=== PATIENT | female | born 1935 | race Caucasian/White ===

== ENCOUNTER 2022-08-16 15:36 | Emergency (ER) | payer OTHER, SELFPAY ==
--- NOTE | ~2022-08-16 | CT_ITS ---
EXAMINATION: CT CHEST, ABDOMEN AND PELVIS WITHOUT CONTRAST CLINICAL INFORMATION: Lung metastasis. COMPARISON: No pertinent prior studies are available for comparison. TECHNIQUE: Multidetector volumetric imaging was performed from the thoracic inlet through the pubic symphysis without IV contrast. Sagittal and coronal reformatted images were obtained on the technologist's workstation. This CT examination was performed using dose optimization techniques as appropriate, variously including the following: *Automated exposure control. *Adjustment of mA and/or kV according to patient size (this includes techniques or standardized protocols for targeted exams where dose is matched to indication/reason for exam; i.e. extremities or head). *Use of iterative reconstruction technique. TOTAL DLP: 487 mGy-cm FINDINGS: CHEST: Lung: Fibrotic changes are present in the lungs with subpleural reticulation and some minimal honeycombing, right greater than left. Scattered small micronodules are seen but there is no convincing evidence of pulmonary metastatic disease. Some bronchial wall thickening is present with some traction bronchiectasis is present at the lung bases. Mediastinum: Status post median sternotomy. Heart size is normal. Extensive coronary calcifications are seen. Patient is status post CABG. Tracheobronchomegaly. No mediastinal or hilar lymphadenopathy is seen. Large hiatal hernia is present in the mediastinum. Dual-lead pacemaker is present. Pericardium/Pleura: No significant effusion. No pleural mass or thickening. Chest Wall/Axilla: Left chest wall pacemaker. No axillary lymphadenopathy. ABDOMEN/PELVIS: Peritoneal Space: No significant free air or free fluid identified. Liver, Gallbladder, Biliary Tree: The liver is normal in size, shape, and attenuation. No focal hepatic lesion or biliary ductal dilatation is present. Status post cholecystectomy. Pancreas: Unremarkable. Spleen: Unremarkable. Adrenal Glands: Unremarkable. Kidneys and Ureters: The right kidney appears normal. The left kidney is smaller with cortical scarring. Bladder: Distended but unremarkable. Gastrointestinal Tract: The small and large bowel are unremarkable. The appendix is unremarkable. Abdominal Wall: No significant hernia is appreciated. Lymph Nodes: No lymphadenopathy. Vascular: Severe atherosclerotic changes are present in the aorta and its branches. Mild dilatation of the infrarenal aorta at 2.6 cm. I suspect some branch vessel disease is present. For example, the SMA appears to be filled with calcified plaque (11:36). The IVC appears unremarkable. PELVIC VISCERA: Surgically absent. OSSEUS STRUCTURES: There is a left hip intramedullary viet and screw. There is mild biconvex thoracolumbar scoliosis. There is generalized osteopenia with some mild concavity of vertebral body endplates. Disc spaces are well preserved. CT/CT abdomen pelvis wo IV con IMPRESSION: 1. No convincing evidence of metastatic disease in the chest, abdomen or pelvis. 2. Fibrotic changes in the lungs with some scattered micronodules but no convincing evidence of pulmonary metastatic disease. 3. Incidental note made of large hiatal hernia, cholecystectomy, left renal scarring, severe atherosclerotic changes in the aorta and its branches with mild dilatation of the infrarenal aorta at 2.6 cm. Fleischner guidelines were followed.
[2022-08-16 15:47] VITALS: BP 148/49; BP 149/59; PULSE 73; PULSE 82; RESP 18; TEMP 36.6; O2SAT 98; BMI 17.9
--- NOTE | 2022-08-16 16:42 | ED_ITS ---
HPI - Abdominal Pain General Chief Complaint: Abdominal Pain Stated Complaint: ABD PAIN/BACK PAIN Time Seen by Provider: 08/16/22 16:30 Source: patient Mode of arrival: ambulatory Limitations: no limitations History of Present Illness HPI narrative: Patient 86 years of with history of coronary disease atrial flutter fibrillation on Xarelto and diltiazem coronary artery disease status post bypass been having chronic abdominal pain been followed by PCP at [facility] head CT scan done last month which was negative pain is going on for last 3 months decreased oral intake has nausea in the CT scan and some lung lesions were seen patient will be having colonoscopy on 09/01 comes here for ongoing pain for last 3 months with weight loss Related Data Home Medications Medication Instructions Recorded Confirmed atorvastatin 40 mg tablet 1 tab PO DAILY 08/16/22 08/16/22 diltiazem HCl 120 mg 1 cap PO DAILY 08/16/22 08/16/22 capsule,extended release 24 hr glimepiride 4 mg tablet 1 tab PO DAILY 08/16/22 08/16/22 metoprolol succinate 50 mg 1 tab PO DAILY 08/16/22 08/16/22 tablet,extended release 24 hr multivitamin 1 tab PO DAILY 08/16/22 08/16/22 rivaroxaban 15 mg tablet (Xarelto) 1 tab PO DAILY 08/16/22 08/16/22 sacubitril 24 mg-valsartan 26 mg 1 tab PO BID 08/16/22 08/16/22 tablet (Entresto) Previous Rx's Medication Instructions Recorded pantoprazole 40 mg tablet,delayed 40 mg PO DAILY #30 tabs 08/16/22 release (Protonix) Allergies Allergy/AdvReac Type Severity Reaction Status Date / Time acetaminophen [From Percocet] Allergy Hallucinati Verified 08/16/22 17:04 ons oxycodone [From Percocet] Allergy Hallucinati Verified 08/16/22 17:04 ons Review of Systems Review of Systems Yes all other systems are reviewed and are negative [facility] Social History Social History Advance Directives: No Advance Directives Information Provided: No Physical Exam ED Vital Signs: Vital Signs - 24 hr 08/16/22 15:47 Temperature 98 F Pulse Rate 73 Respiratory Rate 18 Blood Pressure 149/59 H Pulse Oximetry 98 BMI result Body Mass Index 17.9 Appearance: Alert. Oriented X3. No acute distress. Eyes: pallor+ ENT: Pharynx normal. Oral Mucosa moist Neck: Normal inspection. Neck supple. CVS: Normal heart rate and rhythm. Pulses normal. Respiratory: No respiratory distress. Equal air entry bilateral, no wheezing/rales/rhonchi Abdomen: Soft mild diffuse tenderness no rebound tenderness or guarding Bowel sounds are present, no mass palpable, L CVA tenderness Skin: Skin warm and dry. Normal skin color. Normal skin turgor. Extremities: No lower extremity edema. No calf tenderness Neuro: Oriented X 3. No motor deficit. Medications Administered Discontinued Medications Generic Name Dose Route Start Last Admin Trade Name Freq PRN Reason Stop Dose Admin Sodium Chloride 1,000 mls @ 999 mls/hr 08/16/22 16:53 08/16/22 19:50 Ns IV 08/16/22 17:53 Infused .Q1H1M ONE Infusion Morphine Sulfate 2 mg 08/16/22 16:53 08/16/22 17:35 Morphine Sulfate 4 Mg/Ml Cartridge IVPUSH 08/16/22 16:54 2 mg ONCE ONE Administration Protocol Ondansetron HCl 4 mg 08/16/22 16:53 08/16/22 17:35 Ondansetron Hcl 4 Mg/2 Ml Vial IVPUSH 08/16/22 16:54 4 mg ONCE ONE Administration MDM - Abdominal Pain MDM Narrative Medical decision making narrative: Patient workup essentially is negative CT scan of the abdomen and chest did not show any acute lesion patient has slight anemia planning to see clam grower for colonoscopy in 2 weeks clinically comfortable will discharge patient home Differential Diagnosis Differential diagnosis: Likely calculus of kidney, constipation and diverticulitis Lab Data Attestation: I reviewed the patient's lab results. Result diagrams: 08/16/22 17:15 08/16/22 17:15 Labs: Lab Results 08/16/22 08/16/22 08/16/22 Range/Units 17:15 17:15 17:15 WBC 6.9 (4.8-10.8) X10*3/uL RBC 3.09 L (4.20-5.50) X10*6/uL Hgb 8.5 L (12.0-16.0) g/dl Hct 26.8 L (37.0-47.0) % MCV 86.7 (80.0-98.0) fL MCH 27.5 (27.0-33.0) pg MCHC 31.7 (31.0-35.0) g/dl RDW 14.2 (11.0-16.0) % Plt Count 286 (160-400) X10*3/uL MPV 8.8 L (9.4-12.3) fL Immature Gran % (Auto) 0.4 (0.0-0.4) % Neut % (Auto) 66.7 (45-73) % Lymph % (Auto) 24.2 (20-40) % Kemper % (Auto) 7.4 (2-11) % Eos % (Auto) 0.6 (0-4) % Baso % (Auto) 0.7 (0-2) % Lymph # (Auto) 1.7 (1.2-4.9) X10*3/uL Kemper # (Auto) 0.5 (0.1-1.2) X10*3/uL Eos # (Auto) 0.0 (0.0-0.4) X10*3/uL Baso # (Auto) 0.1 (0.0-0.2) X10*3/uL Abs Immat Gran (auto) 0.03 (0.00-0.03) X10*3/uL Absolute Neuts (auto) 4.6 (2.0-8.3) x10*3/uL Absolute Nucleated RBC 0.000 (0.0-0.012) X10*3/uL Nucleated RBC % (auto) 0.0 (0.0-0.2) /100WBC Sodium 131 L (135-145) mmol/L Potassium 4.1 (3.3-5.1) mmol/L Chloride 96 (96-108) mmol/L Carbon Dioxide 26 (22-29) mmol/L Anion Gap 13 (12-20) BUN 11 (9-16) mg/dL Creatinine 0.80 (0.5-1.4) mg/dL Estim Creat Clear Calc 38.3 Estimated GFR > 60 Random Glucose 168 H (60-115) mg/dL Lactic Acid 1.1 (0.5-2.0) mmol/L Calcium 9.0 (8.4-10.2) mg/dL Total Bilirubin 0.6 (0.0-1.0) mg/dL AST 19 (5-31) U/L ALT 7 (0-31) U/L Alkaline Phosphatase 66 (39-117) U/L Total Protein 6.3 L (6.5-8.0) g/dL Albumin 3.7 (3.5-5.0) g/dL Lipase 18 (8-78) U/L ECG Data Attestation: I personally reviewed and interpreted this ECG as follows: Interpretation: Atrial paced rhythm rate 60 beats per minute left bundle-branch block no acute ST changes no acute ischemia Discharge Plan Discharge Clinical Impression: Hernia, hiatal Patient Disposition: Home, Self-Care Instructions: Hiatal Hernia (ED) Additional Instructions: Drink plenty of fluids Take Protonix daily as advised Tylenol for pain Follow-up with a primary care doctor/clam grower and have colonoscopy, endoscopy as scheduled Prescriptions: New pantoprazole [Protonix] 40 mg tablet,delayed release (DR/EC) 40 mg PO DAILY Qty: 30 0RF No Action multivitamin Tablet 1 tab PO DAILY atorvastatin 40 mg tablet 1 tab PO DAILY metoprolol succinate 50 mg tablet extended release 24 hr 1 tab PO DAILY glimepiride 4 mg tablet 1 tab PO DAILY diltiazem HCl 120 mg capsule,extended release 24hr 1 cap PO DAILY Xarelto 15 mg tablet 1 tab PO DAILY Entresto 24-26 mg tablet 1 tab PO BID Interventions: ED Discharge Assessment Last Done: 08/16/22 21:12 Discharge Date/Time: 08/16/22 21:12
--- NOTE | 2022-08-16 17:14 | ECG_ITS ---
Test Reason : WEAKNESS Blood Pressure : / mmHG Vent. Rate : 060 BPM Atrial Rate : 060 BPM P-R Int : 242 ms QRS Dur : 130 ms QT Int : 446 ms P-R-T Axes : 000 041 221 degrees QTc Int : 446 ms Atrial-paced rhythm with prolonged AV conduction Left bundle branch block Abnormal ECG No previous ECGs available Referred By: Thaddeus Vidal Electronically Signed By:Luciano Ellis
[2022-08-16 17:21] LABS: MANUAL DIFF FLAG NO
[2022-08-16 17:24] LABS: Basophils Absolute Auto 0.1 X10*3/uL (0.0-0.2); Basophils Percent Auto 0.7 % (0-2); Eosinophils Percent Auto 0.6 % (0-4); Hematocrit 26.8 % (37.0-47.0); Hemoglobin 8.5 g/dl (12.0-16.0); Imm Gran Abs Auto 0.03 X10*3/uL (0.00-0.03); Imm Gran Pct Auto 0.4 % (0.0-0.4); Lymphocytes Absolute Auto 1.7 X10*3/uL (1.2-4.9); Lymphocytes Percent Auto 24.2 % (20-40); Mean Corpuscular HGB Conc 31.7 g/dl (31.0-35.0); Mean Corpuscular Hemoglobin 27.5 pg (27.0-33.0); Mean Corpuscular Volume 86.7 fL (80.0-98.0); Mean Platelet Volume 8.8 fL (9.4-12.3); Monocytes Absolute Auto 0.5 X10*3/uL (0.1-1.2); Monocytes Percent Auto 7.4 % (2-11); Neutrophils Absolute Auto 4.6 x10*3/uL (2.0-8.3); Neutrophils Percent Auto 66.7 % (45-73); Platelet Count 286 X10*3/uL (160-400); Red Blood Count 3.09 X10*6/uL (4.20-5.50); Red Cell Distribution Width 14.2 % (11.0-16.0); White Blood Count 6.9 X10*3/uL (4.8-10.8)
[2022-08-16 17:34] LABS: Lactic Acid 1.1 mmol/L (0.5-2.0)
[2022-08-16] MEDS: Morphine Sulfate 4 MG/ML CARTRIDGE 2 MG IVPUSH (17:35)
[2022-08-16] MEDS: 0.9 % Sodium Chloride 1,000 ML 999 ML IV (17:35)
[2022-08-16] MEDS: ondansetron HCL 4 MG/2 ML VIAL IVPUSH (17:35)
[2022-08-16 17:59] LABS: Alanine Aminotransferase 7 U/L (0-31); Albumin Level 3.7 g/dL (3.5-5.0); Alkaline Phosphatase 66 U/L (39-117); Anion Gap 13 (12-20); Aspartate Amino Transferase 19 U/L (5-31); Bilirubin Total 0.6 mg/dL (0.0-1.0); Blood Urea Nitrogen 11 mg/dL (9-16); Carbon Dioxide 26 mmol/L (22-29); Chloride 96 mmol/L (96-108); Creatinine Clr Calc Pharmacy 38.3; Estimated Glomerular Filt Rate > 60; Glucose Random 168 mg/dL (60-115); Lipase 18 U/L (8-78); Potassium 4.1 mmol/L (3.3-5.1); Sodium 131 mmol/L (135-145); Total Protein 6.3 g/dL (6.5-8.0)
--- NOTE | 2022-08-16 18:21 | PHA.MEDREC ---
Pharmacy Consult ? Medication Reconciliation Pharmacy has completed the medication reconciliation.
== END 2022-08-16 21:12 | disposition home or self-care (01) ==
PROVIDERS: Emergency Provider Internal Medicine; PCP Internal Medicine
DX: K44.9 Diaphragmatic hernia without obstruction or gangrene (principal); G89.29 Other chronic pain; R10.9 Unspecified abdominal pain; I48.92 Unspecified atrial flutter; Z95.1 Presence of aortocoronary bypass graft; Z79.01 Long term (current) use of anticoagulants; Z79.02 Long term (current) use of antithrombotics/antiplatelets; Z79.899 Other long term (current) drug therapy
CPT/HCPCS: 36415; 71250; 74176; 80053; 83605; 83690; 85025; 93005; 96361; 96374; 96375; 99284; J2270; J2405